=== PATIENT | male | born 1995 | race Caucasian/White ===

== ENCOUNTER 2021-07-23 17:45 | Emergency (ER) | payer OTHER, SELFPAY ==
--- NOTE | ~2021-07-23 | CT_ITS ---
EXAMINATION: CT abdomen pelvis wo con DATE: 07/23/2021 21:51 INDICATION: Right flank pain TECHNIQUE: Computed tomography (CT) of the abdomen and pelvis was performed without intravenous contr ast. Automated exposure control and iterative reconstruction technique were employed. Exam dose: 673 .12 mGy-cm total exam DLP. COMPARISON: None. FINDINGS: The lung bases are clear. Normal heart size. No pericardial or pleural effusion. Diffuse hepatic steatosis. No hepatic, splenic, pancreatic, and adrenal or renal space-occupying mass lesion is evident. No ureteral calculus or hydroureteronephrosis. The urinary bladder is unremarkabl e. Normal prostate gland and seminal vesicles. Normal caliber of the abdominal aorta. No intraperitoneal or retroperitoneal or pelvic mass lesion or adenopathy or ascites. Normal appendix. No bowel obstruction or intraperitoneal free air. Included skeletal structures are unremarkable. IMPRESSION: Hepatic steatosis Normal appendix No urinary tract calculus or hydroureteronephrosis Reviewed, dictated and finalized at [facility]. Reviewed, dictated and finalized at [facility] [employer]
[2021-07-23 17:54] VITALS: BP 141/83; PULSE 78; RESP 14; TEMP 37.2; O2SAT 100
[2021-07-23 20:45] LABS: Basophils Percent Auto 0.4 % (0.2-1.2); Eosinophils Absolute Auto 0.1 K/mm3 (0-0.3); Eosinophils Percent Auto 1.5 % (0-4.4); Hematocrit 46.4 % (42.0-52.0); Hemoglobin 16.8 g/dL (14.0-18.0); Immature Granulocyte Absolute 0.02 K/mm3 (0.00-0.031); Immature Granulocyte Percent A 0.3 % (0-0.5); Lymphocytes Absolute Auto 2.34 K/mm3 (0.9-3.2); Lymphocytes Percent Auto 31.1 % (18.3-44.2); Mean Corpuscular HGB Conc 36.2 g/dl (32-36); Mean Corpuscular Hemoglobin 31.3 pg (26-34); Mean Corpuscular Volume 86.6 fl (80-100); Mean Platelet Volume 9.6 fl (7.4-10.4); Monocytes Absolute Auto 0.7 K/mm3 (0.1-0.6); Monocytes Percent Auto 9.4 % (2.6-8.5); Neutrophils Absolute Auto 4.3 K/mm3 (1.3-6.7); Neutrophils Percent Auto 57.3 % (45.5-73.1); Platelet Count Result 293 k/mm3 (150-375); Red Blood Count 5.36 M/mm3 (4.6-6.20); Red Cell Distribution Width 12.2 % (11.5-14.5); White Blood Count 7.5 K/mm3 (4.5-10.0)
[2021-07-23 21:25] LABS: Add Urine Microscopic? NO; Appearance Urine Clear (Clear); Bilirubin Urine Negative (Negative); Blood Urine Negative (Negative); Color Urine Straw (Yellow); Glucose Urine UA Negative (Negative); Ketones Urine Negative (Negative); Leukocyte Esterase Ur Negative LEU/UL (Negative); Nitrate Urine Negative (Negative); Protein Urine Negative (Negative); Urobilinogen Urine Negative mg/dL (<2.0)
[2021-07-23 21:38] LABS: Alanine Aminotransferase 63 U/L (4-50); Albumin Level 4.8 g/dL (3.5-5.1); Alkaline Phosphatase 63 U/L (38-126); Anion Gap 9 mmol/L (8-16); Aspartate Amino Transferase 41 U/L (17-59); Bilirubin,Total 0.7 mg/dL (0.2-1.3); Blood Urea Nitrogen 13 mg/dL (9-20); Calcium 9.6 mg/dL (8.4-10.2); Carbon Dioxide 25 mmol/L (22-30); Chloride 101 mmol/L (98-107); Estimated CRCL calculation 129 ml/min; Estimated Glomerular Filt Rate > 60; Glucose 105 mg/dL (65-110); Potassium 3.9 mmol/L (3.4-5.0); Sodium 135 mmol/L (137-145)
--- NOTE | 2021-07-23 21:47 | ED.ABDPAIN ---
HPI - Abdominal Pain General Chief Complaint: Abdominal Pain Stated Complaint: back pain Time Seen by Provider: 07/23/21 20:33 Source: patient, family and RN notes reviewed Limitations: no limitations History of Present Illness HPI narrative: 25-year-old male presented to the emergency department for evaluation of 3 weeks of lower back pain and abdominal pain. Patient states that the symptoms started a few weeks ago and have been slowly progressing. Patient denies any change in urination. Patient denies any nausea vomiting or diarrhea. 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 Patient states this was taken care of surgically and states he has not had urologic follow-up or had any issues since he was a child. Patient denies any personal history of kidney stones but does report a strong family history of stones. Related Data Home Medications Medication Instructions Recorded Confirmed No Home Medications 07/23/21 07/23/21 Allergies Allergy/AdvReac Type Severity Reaction Status Date / Time morphine Allergy Mild CHILD, Verified 07/23/21 20:38 SITE SWELLING Review of Systems Review of Systems: CONSTITUTIONAL: Denies fever, chills, or sweats. EYES: Denies visual changes, redness, or discharge. CARDIOVASCULAR: Denies chest pain, palpitations, or edema. RESPIRATORY: Denies cough or dyspnea. GASTROINTESTINAL: Flank pain. GENITOURINARY: Denies dysuria or hematuria. SKIN: Denies rash or itching. MUSCULOSKELETAL: Denies back pain, joint pain, or myalgia. NEUROLOGIC: Denies headache, numbness, or weakness. All systems reviewed & are unremarkable except as noted in HPI and below Exam Narrative: APPEARANCE: Well appearing, no pain, no distress, well-nourished. HEAD: normocephalic, atraumatic. EYES: PERRLA/EOMI, conjunctivae clear. NOSE: Normal no drainage NECK: Supple. No adenopathy, no masses. RESPIRATORY: Airway patent, respirations nonlabored. Clear to auscultation bilaterally, no rales, rhonchi, wheezing. CARDIOVASCULAR: Regular rate and rhythm without murmurs rubs or gallops. ABDOMINAL: Lower abdominal tenderness to palpation. Bilateral CVA tenderness to percussion. MUSCULOSKELETAL: Moves all extremities. NEURO: Alert. Cranial nerves II through XII intact. SKIN: Warm, dry. Normal Color Course Course Emergency Course: Patient's labs were reviewed. No significant abnormalities. No evidence of a urinary tract infection. Due to patient reporting a family history of kidney stones and the nature of pain he was having a CT scan was ordered. No pathology to identify the patient identified. Patient does also describe some GI as with this. He was recommended to have a clear liquid diet for the next 2 days and to also try an elimination diet. Patient was called GI as well. All question concerns were addressed. Vital Signs Vital signs: Vital Signs Temperature 99 F 07/23/21 17:54 Pulse Rate 78 07/23/21 17:54 Respiratory Rate 14 07/23/21 17:54 Blood Pressure 141/83 H 07/23/21 17:54 Pulse Oximetry 100 07/23/21 17:54 Temperature 99 F 07/23/21 17:54 Pulse Rate 67 07/23/21 23:00 Respiratory Rate 16 07/23/21 23:00 Blood Pressure 122/85 07/23/21 23:00 Pulse Oximetry 97 07/23/21 23:00 MDM - Abdominal Pain Differential Diagnosis Differential diagnosis: Likely abdominal pain and calculus of kidney Lab Data Attestation: I reviewed the patient's lab results. Result diagrams: 07/23/21 20:40 07/23/21 21:13 Labs: Lab Results 07/23/21 07/23/21 07/23/21 Range/Units 20:40 21:13 21:13 WBC 7.5 (4.5-10.0) K/mm3 RBC 5.36 (4.6-6.20) M/mm3 Hgb 16.8 (14.0-18.0) g/dL Hct 46.4 (42.0-52.0) % MCV 86.6 (80-100) fl MCH 31.3 (26-34) pg MCHC 36.2 H (32-36) g/dl RDW 12.2 (11.5-14.5) % Plt Count 293 (150-375) k/mm3 MPV 9.6 (7.4-10.4) fl Immature Gran % (Auto) 0
[2021-07-23 21:59] VITALS: BP 137/97; PULSE 84; RESP 16; O2SAT 97
[2021-07-23 23:00] VITALS: BP 122/85; PULSE 67; RESP 16; O2SAT 97
== END 2021-07-23 23:01 | disposition home or self-care (01) ==
PROVIDERS: Emergency Provider Emergency Medicine; PCP Internal Medicine
DX: R10.30 Lower abdominal pain, unspecified (principal)
CPT/HCPCS: 36415; 74176; 80053; 81003; 85025; 99284